=== PATIENT | male | born 1945 | race Hispanic/Latino ===

== ENCOUNTER → 2018-02-03 | Outpatient (CLI) | payer MEDICARE ==
[~2018-02-03] MED LIST: AEC81 PO; CARV12.511 PO; FURO-152 PO; SAXA1TBM2 PO; SIMV40TA59 PO; SPIR25TA6 PO
== END | disposition home or self-care (01) ==
LOC: SHCH 07:47
PROVIDERS: ATTEND Internal Medicine Cardiovascular Disease
DX: I35.0 Nonrheumatic aortic (valve) stenosis (principal); Z95.1 Presence of aortocoronary bypass graft
CPT/HCPCS: 93306

== ENCOUNTER → 2018-10-09 | Outpatient (CLI) | payer MEDICARE | END | disposition home or self-care (01) | LOC: RAH 12:08 | PROVIDERS: ATTEND Internal Medicine | DX: M19.011 Primary osteoarthritis, right shoulder (principal) | CPT/HCPCS: 73030 ==

== ENCOUNTER → 2018-12-25 | Outpatient (CLI) | payer MEDICARE | END | disposition home or self-care (01) | LOC: SHCH 09:18 | PROVIDERS: ATTEND Internal Medicine Cardiovascular Disease | DX: I11.0 Hypertensive heart disease with heart failure (principal); I50.21 Acute systolic (congestive) heart failure; I08.0 Rheumatic disorders of both mitral and aortic valves; J90 Pleural effusion, not elsewhere classified | CPT/HCPCS: 93306 ==

== ENCOUNTER → 2019-06-05 | Outpatient (CLI) | payer MEDICARE | END | disposition home or self-care (01) | LOC: RAH 08:30 | PROVIDERS: ATTEND Internal Medicine | DX: I51.7 Cardiomegaly (principal); I50.9 Heart failure, unspecified; I70.0 Atherosclerosis of aorta; J98.11 Atelectasis; Z95.0 Presence of cardiac pacemaker | CPT/HCPCS: 71046 ==

== ENCOUNTER 2023-12-31 09:43 | Inpatient (IN) | payer MEDICARE ==
[~2023-12-31] VITALS: Ht 170.2 cm; Wt 73.3 kg
[2023-12-31] VITALS (22 sets, daily range): BP systolic 95–126; BP diastolic 50–98; PULSE 81–105; RESP 14–25; TEMP 98.2; O2SAT 98
[2023-12-31 10:07] LABS: BASOPHILS # (AUTO) 0.05 K/uL (0.00-0.20); BASOPHILS % (AUTO) 0.3 % (0.0-5.0); EOSINOPHILS # (AUTO) 0.08 K/uL (0.00-0.70); EOSINOPHILS % (AUTO) 0.6 % (0.0-8.0); HEMATOCRIT 21.5 % (42-54); IMMATURE GRANULOCYTE ABSOLUTE 0.24 K/uL (0-1); LYMPHOCYTES % (AUTO) 14.1 % (21.0-51.0); MEAN CORPUSCULAR HEMOGLOBIN 31.6 pg (27.0-33.0); MEAN CORPUSCULAR VOLUME 95.6 fL (79-99); MONOCYTES # (AUTO) 0.6 K/uL (0.1-1.0); MONOCYTES % (AUTO) 4.2 % (3.0-13.0); NEUTROPHILS # (AUTO) 11.3 K/uL (1.8-7.7); NEUTROPHILS % (AUTO) 79.1 % (40.0-77.0); PLATELET COUNT (AUTO) 170 K/uL (130-400); RED BLOOD CELL COUNT(AUTO) 2.25 MIL/uL (4.50-6.20); RED CELL DISTRIBUTION WIDTH 12.9 % (11.0-15.5); WHITE BLOOD COUNT (AUTO) 14.3 K/uL (4.8-10.8)
[2023-12-31 10:27] LABS: ALBUMIN 2.5 g/dL (3.5-5.0); BILIRUBIN,DIRECT 0.1 mg/dL (0.0-0.3); BILIRUBIN,TOTAL 0.2 mg/dL (0.2-1.0); CREATININE 1.8 mg/dL (0.5-1.3); MAGNESIUM 2.5 mg/dL (1.80-2.40)
[2023-12-31 10:39] LABS: B-TYPE NATRIURETIC PEPTIDE 248 pg/mL (0-100)
[2023-12-31] MEDS: 0.9%NACL 1000ML 2,178 ML IV ONE (11:53)
[2023-12-31 12:40] LABS: APPEARANCE,URINE CLEAR (CLEAR); BILIRUBIN,URINE NEGATIVE (NEGATIVE); COLOR,URINE COLORLESS (YELLOW); GLUCOSE, URINE (UA) >=1000 mg/dL (NEGATIVE); KETONES,URINE NEGATIVE (NEGATIVE); LEUKOCYTE ESTERASE ,URINE NEGATIVE Leu/uL (NEGATIVE); NITRATE,URINE NEGATIVE (NEGATIVE); OCCULT BLOOD,URINE NEGATIVE (NEGATIVE); PROTEIN,URINE NEGATIVE (NEGATIVE); UROBILINOGEN,URINE 0.2 mg/dL (0.2-1.0)
[2023-12-31 12:41] LABS: ADD UA MICROSCOPIC YES
[2023-12-31 12:57] LABS: MUCUS,URINE RARE LPF (None Seen); WBC,URINE 0-1 /HPF (0-1)
[2023-12-31] MEDS: cefTRIAXone 1G VIAL IVPB ONE (14:09)
[2023-12-31] MEDS ORDERED: ONDANSETRON 4MG INJ IVP PRN (14:30)
[2023-12-31] MEDS: cefTRIAXone 1G VIAL IVPB SCH (14:30)
[2023-12-31] MEDS ORDERED: COMPOUND IV REFRIGERATED 1 EACH IVSOLN MISC PRN (14:30)
[2023-12-31] MEDS ORDERED: M V I IV ONE (15:00)
[2023-12-31] MEDS ORDERED: [UNRECOGNIZED DRUG - OTHER] IV ONE (15:00)
[2023-12-31] MEDS ORDERED: FOLIC ACID IV ONE (15:00)
[2023-12-31] MEDS ORDERED: THIAMINE HCL IV ONE (15:00)
[2023-12-31] MEDS: AZITHROMYCIN 500MG+NS 250ML 250 ML IVPB SCH (15:53)
[2023-12-31 15:58] LABS: SARS-CoV-2, RNA, NAAT NEGATIVE SARS CoV-2 (NEGATIVE)
[2023-12-31 16:05] LABS: INFLUENZA TYPE A Negative For Type A (NEGATIVE); INFLUENZA TYPE B Negative For Type B (NEGATIVE)
[2023-12-31] MEDS: NOREPINEPHRIN 4MG/NS 250ML 250 ML IV SCH (16:25)
[2023-12-31] MEDS: PANTOPRAZOLE 40MG INJ 80 MG in 0.9%NACL 100ML 100 ML IVP SCH (16:27)
[2023-12-31 21:16] LABS: HEMATOCRIT 17.4 % (42-54)
[2023-12-31] MEDS: BUDESONIDE 0.5 MG/2 ML INH IH SCH (23:42)
[2023-12-31] MEDS: ALBUTEROL 0.083% 2.5 MG/3 ML INH IH SCH (23:42)
[2023-12-31] MEDS: IpraTROPium 0.5 MG/2.5 ML INH IH SCH (23:42)
[2024-01-01] VITALS (100 sets, daily range): BP systolic 79–145; BP diastolic 36–81; PULSE 73–112; RESP 6–25; TEMP 98–99; O2SAT 95–98
[2024-01-01] MEDS: acetaMINOPHEN 325 MG TAB PO PRN (04:16)
[2024-01-01 04:37] LABS: BASOPHILS # (AUTO) 0.08 K/uL (0.00-0.20); BASOPHILS % (AUTO) 0.5 % (0.0-5.0); EOSINOPHILS # (AUTO) 0.16 K/uL (0.00-0.70); EOSINOPHILS % (AUTO) 0.9 % (0.0-8.0); HEMATOCRIT 22.1 % (42-54); IMMATURE GRANULOCYTE ABSOLUTE 0.61 K/uL (0-1); LYMPHOCYTES # (AUTO) 3.9 K/uL (1.0-4.8); MEAN CORPUSCULAR HEMOGLOBIN 29.3 pg (27.0-33.0); MEAN CORPUSCULAR VOLUME 88.8 fL (79-99); MONOCYTES # (AUTO) 1.5 K/uL (0.1-1.0); MONOCYTES % (AUTO) 8.5 % (3.0-13.0); NEUTROPHILS # (AUTO) 11.4 K/uL (1.8-7.7); NEUTROPHILS % (AUTO) 64.6 % (40.0-77.0); NUCLEATED RED BLOOD CELLS 0.4 % (0.0-0.19); PLATELET COUNT (AUTO) 166 K/uL (130-400); RED BLOOD CELL COUNT(AUTO) 2.49 MIL/uL (4.50-6.20); RED CELL DISTRIBUTION WIDTH 16.1 % (11.0-15.5); WHITE BLOOD COUNT (AUTO) 17.6 K/uL (4.8-10.8)
[2024-01-01 04:54] LABS: ALBUMIN 2.4 g/dL (3.5-5.0); BILIRUBIN,TOTAL 0.5 mg/dL (0.2-1.0); CREATININE 1.4 mg/dL (0.5-1.3); MAGNESIUM 2.1 mg/dL (1.80-2.40); POTASSIUM 4.7 mmol/L (3.5-5.1)
[2024-01-01] MEDS: 0.9%NACL 1000ML 1,000 ML IV SCH (09:24)
[2024-01-01] MEDS ORDERED: DEXTROSE 50%-WATER 50 ML DISP.SYRIN IV PRN (11:00)
[2024-01-01] MEDS ORDERED: GLUCAGON 1MG KIT 1 MG ML IM PRN (11:00)
[2024-01-01] MEDS: INSULIN humuLIN R 100 UNIT/ML 3ML SQ SCH (11:48)
[2024-01-01 11:49] LABS: HEMATOCRIT 19.7 % (42-54)
[2024-01-01] MEDS ORDERED: hydroMORPHone 0.5 MG SYG (0.5MG/0.5ML) IVP PRN (13:00)
[2024-01-01 13:52] LABS: ABG BASE EXCESS -5.9 mmol/L (-2.0-3.0); ABG HCO3 17.3 mmol/L (21.0-28.0); ABG OXYGEN SATURATION 96.3 % (94.0-98.0); ABG PCO2 29 mmHg (35-48); ABG PH 7.401 (7.350-7.450); DEVICE COMMENT RR; PO2, ARTERIAL BG 82.6 mmHg (83.0-108.0); VENT MODE, BG RA KARLA RN (ROOM AIR)
[2024-01-01] MEDS ORDERED: CEFTRIAXONE 2GM VIAL IVPB SCH (14:30)
[2024-01-01] MEDS: furoSEMIDE 40MG VIAL IV SCH (16:34)
[2024-01-01] MEDS: ZOSYN 3.375GM +NS 50ML IV SCH (16:34)
[2024-01-01 20:34] LABS: HEMATOCRIT 28.7 % (42-54)
[2024-01-01] MEDS: furoSEMIDE 40MG VIAL IV PRN (22:41)
[2024-01-02] VITALS (125 sets, daily range): BP systolic 68–136; BP diastolic 35–93; PULSE 69–90; RESP 6–34; TEMP 97.9–98.7; O2SAT 92–97
[2024-01-02 01:43] LABS: CREATININE,URINE RANDOM 2.98 mg/dL (30-135)
[2024-01-02 02:22] LABS: BASOPHILS # (AUTO) 0.15 K/uL (0.00-0.20); BASOPHILS % (AUTO) 0.6 % (0.0-5.0); EOSINOPHILS # (AUTO) 0.38 K/uL (0.00-0.70); EOSINOPHILS % (AUTO) 1.6 % (0.0-8.0); HEMATOCRIT 29.9 % (42-54); IMMATURE GRANULOCYTE ABSOLUTE 0.88 K/uL (0-1); LYMPHOCYTES # (AUTO) 4.8 K/uL (1.0-4.8); LYMPHOCYTES % (AUTO) 19.6 % (21.0-51.0); MEAN CORPUSCULAR HEMOGLOBIN 29.4 pg (27.0-33.0); MEAN CORPUSCULAR HGB CONC 34.4 g/dL (32.0-36.0); MEAN CORPUSCULAR VOLUME 85.4 fL (79-99); MONOCYTES # (AUTO) 1.9 K/uL (0.1-1.0); MONOCYTES % (AUTO) 7.8 % (3.0-13.0); NEUTROPHILS # (AUTO) 16.4 K/uL (1.8-7.7); NEUTROPHILS % (AUTO) 66.8 % (40.0-77.0); NUCLEATED RED BLOOD CELLS 1.6 % (0.0-0.19); PLATELET COUNT (AUTO) 164 K/uL (130-400); RED CELL DISTRIBUTION WIDTH 15.9 % (11.0-15.5); WHITE BLOOD COUNT (AUTO) 24.5 K/uL (4.8-10.8)
[2024-01-02 02:47] LABS: HEMOGLOBIN A1C 5.8 % (4.0-6.0)
[2024-01-02 03:01] LABS: % IRON SATURATION 49.3 % (30-44)
[2024-01-02 03:24] LABS: CREATININE 1.4 mg/dL (0.5-1.3); PHOSPHORUS 2.7 mg/dL (2.5-4.9); POTASSIUM 4.1 mmol/L (3.5-5.1)
[2024-01-02] MEDS: BACITRACIN 1 EACH PACKET TP ONE (09:16)
[2024-01-02] MEDS ORDERED: proPOFol 10 MG/ML 20ML VIAL IV ONE (12:35)
[2024-01-02] MEDS ORDERED: MONT-39 PO (12:42)
[2024-01-02] MEDS ORDERED: ASPI-1197 PO (12:42)
[2024-01-02] MEDS ORDERED: ZINC50TA64 PO (12:42)
[2024-01-02] MEDS ORDERED: SPIR25TA6 PO (12:42)
[2024-01-02] MEDS ORDERED: CARV3.1262 PO (12:42)
[2024-01-02] MEDS ORDERED: METF-444 PO (12:42)
[2024-01-02] MEDS ORDERED: DAPA10TA PO (12:42)
[2024-01-02] MEDS ORDERED: LORA10TA7 PO (12:42)
[2024-01-02] MEDS ORDERED: SACU1TAB PO (12:42)
[2024-01-02] MEDS ORDERED: SIMV-46 PO (12:42)
[2024-01-02] MEDS ORDERED: APIX5TAB PO (12:42)
[2024-01-02] MEDS ORDERED: FURO40TA7 PO (12:42)
[2024-01-02] MEDS: miDODRine HCL 5 MG TABLET PO SCH (13:59)
[2024-01-02] MEDS: LINEZOLID 600 MG/ISO-OSM 300 ML IV SCH (13:59)
[2024-01-02] MEDS: PANTOPRAZOLE 40 MG TAB DR PO SCH (21:00)
[2024-01-03] VITALS (47 sets, daily range): BP systolic 88–149; BP diastolic 46–111; PULSE 74–84; RESP 5–35; TEMP 97.5–98.2; O2SAT 97–100
[2024-01-03 04:18] LABS: HEMATOCRIT 27.3 % (42-54); MEAN CORPUSCULAR HEMOGLOBIN 30.3 pg (27.0-33.0); MEAN CORPUSCULAR HGB CONC 34.4 g/dL (32.0-36.0); MEAN CORPUSCULAR VOLUME 88.1 fL (79-99); NUCLEATED RED BLOOD CELLS 0.2 % (0.0-0.19); RED BLOOD CELL COUNT(AUTO) 3.1 MIL/uL (4.50-6.20); RED CELL DISTRIBUTION WIDTH 16.6 % (11.0-15.5); WHITE BLOOD COUNT (AUTO) 20.3 K/uL (4.8-10.8)
[2024-01-03 04:32] LABS: ALBUMIN 2.6 g/dL (3.5-5.0); BILIRUBIN,TOTAL 0.9 mg/dL (0.2-1.0); CREATININE 1.2 mg/dL (0.5-1.3); MAGNESIUM 1.8 mg/dL (1.80-2.40); POTASSIUM 4.1 mmol/L (3.5-5.1); TOTAL PROTEIN, SERUM 5.5 g/dL (6.0-8.3)
[2024-01-03 10:18] LABS: INR 1.03 (0.85-1.15); PROTHROMBIN TIME 11.1 SEC (9.6-11.6)
[2024-01-03] MEDS: PEG 3350/NA SULF,BICARB,CL/KCL 4000 ML SOLN PO ONE (19:55)
[2024-01-03] MEDS: furoSEMIDE 40MG VIAL IV SCH (21:00)
[2024-01-03] MEDS ORDERED: NON-FORMULARY MEDICATION 1 EACH (Simvastatin 40 MG) PO SCH (21:00)
[2024-01-03] MEDS: simVASTatin 20 MG TABLET PO SCH (21:33)
[2024-01-03] MEDS: monteLUKAST sodIUM 10 MG TAB PO SCH (21:34)
[2024-01-04] VITALS (26 sets, daily range): BP systolic 95–149; BP diastolic 58–96; PULSE 73–84; RESP 15–20; TEMP 97.3–98.3; O2SAT 97–99
[2024-01-04 05:17] LABS: BASOPHILS # (AUTO) 0.06 K/uL (0.00-0.20); BASOPHILS % (AUTO) 0.4 % (0.0-5.0); EOSINOPHILS # (AUTO) 0.53 K/uL (0.00-0.70); EOSINOPHILS % (AUTO) 3.2 % (0.0-8.0); HEMATOCRIT 26.4 % (42-54); IMMATURE GRANULOCYTE ABSOLUTE 0.14 K/uL (0-1); LYMPHOCYTES % (AUTO) 18.2 % (21.0-51.0); MEAN CORPUSCULAR HEMOGLOBIN 30.7 pg (27.0-33.0); MEAN CORPUSCULAR HGB CONC 34.5 g/dL (32.0-36.0); MEAN CORPUSCULAR VOLUME 89.2 fL (79-99); MONOCYTES # (AUTO) 1.1 K/uL (0.1-1.0); MONOCYTES % (AUTO) 6.7 % (3.0-13.0); NEUTROPHILS # (AUTO) 11.6 K/uL (1.8-7.7); NEUTROPHILS % (AUTO) 70.6 % (40.0-77.0); PLATELET COUNT (AUTO) 140 K/uL (130-400); RED BLOOD CELL COUNT(AUTO) 2.96 MIL/uL (4.50-6.20); RED CELL DISTRIBUTION WIDTH 17.2 % (11.0-15.5); WHITE BLOOD COUNT (AUTO) 16.4 K/uL (4.8-10.8)
[2024-01-04 05:37] LABS: ALBUMIN 2.5 g/dL (3.5-5.0); BILIRUBIN,TOTAL 0.7 mg/dL (0.2-1.0); POTASSIUM 3.8 mmol/L (3.5-5.1); TOTAL PROTEIN, SERUM 5.3 g/dL (6.0-8.3)
[2024-01-04] MEDS ORDERED: proPOFol 10 MG/ML 20ML VIAL IV ONE (08:13)
[2024-01-04] MEDS ORDERED: LIDOCAINE PF 100MG/5ML (2%) SYRINGE 5ML ONE (08:13)
[2024-01-04] MEDS: ASPIRIN 81MG CHEW TAB PO SCH (09:00)
[2024-01-04] MEDS ORDERED: SPIRONOLACTONE 25 MG TAB PO SCH (09:00)
[2024-01-04] MEDS: Dapagliflozin Propanediol (Farxiga) 10 MG PO SCH (09:00)
[2024-01-04] MEDS: PHARMACY COMMUNICATION MISC SCH (13:30)
[2024-01-04] MEDS: furoSEMIDE 40MG VIAL IV SCH (17:47)
[2024-01-04 20:19] LABS: HEMATOCRIT 27.1 % (42-54)
[2024-01-05] VITALS (7 sets, daily range): BP systolic 99–128; BP diastolic 52–74; PULSE 68–79; RESP 16–20; TEMP 97.7–98.5; O2SAT 98
[2024-01-05 05:53] LABS: HEMATOCRIT 26.1 % (42-54); MEAN CORPUSCULAR HEMOGLOBIN 30.1 pg (27.0-33.0); MEAN CORPUSCULAR HGB CONC 33.3 g/dL (32.0-36.0); MEAN CORPUSCULAR VOLUME 90.3 fL (79-99); RED BLOOD CELL COUNT(AUTO) 2.89 MIL/uL (4.50-6.20); RED CELL DISTRIBUTION WIDTH 17.3 % (11.0-15.5); WHITE BLOOD COUNT (AUTO) 12.2 K/uL (4.8-10.8)
[2024-01-05 06:01] LABS: CREATININE 1.1 mg/dL (0.5-1.3); MAGNESIUM 1.6 mg/dL (1.80-2.40); PHOSPHORUS 3.4 mg/dL (2.5-4.9); POTASSIUM 3.7 mmol/L (3.5-5.1)
[2024-01-05] MEDS: APIXaban 5 MG TABLET PO SCH (16:30)
[2024-01-05] MEDS ORDERED: carVEDIlol 3.125 MG TABLET PO SCH (21:00)
[2024-01-06] MEDS ORDERED: furoSEMIDE 40 MG TABLET PO SCH (09:00)
== END 2024-01-05 18:00 | disposition home or self-care (01) | DRG 871 ==
LOC: EDH 09:43 → EDHIP 14:11 → 2CH 19:18 → 3CH 01-03 18:35
PROVIDERS: ADMIT Hospitalist; ATTEND Hospitalist
PROC: 30233N1 Transfusion of Nonautologous Red Blood Cells into Peripheral Vein, Percutaneous Approach (ICD-10-PCS; 2023-12-31)
PROC: 0DB68ZX Excision of Stomach, Via Natural or Artificial Opening Endoscopic, Diagnostic (ICD-10-PCS; principal; 2024-01-02)
PROC: 05HY33Z Insertion of Infusion Device into Upper Vein, Percutaneous Approach (ICD-10-PCS; 2024-01-03)
PROC: 0DJD8ZZ Inspection of Lower Intestinal Tract, Via Natural or Artificial Opening Endoscopic (ICD-10-PCS; 2024-01-04)
DX: A41.9 Sepsis, unspecified organism (principal); E43 Unspecified severe protein-calorie malnutrition; J18.9 Pneumonia, unspecified organism; R65.21 Severe sepsis with septic shock; I50.43 Acute on chronic combined systolic (congestive) and diastolic (congestive) heart failure; J96.01 Acute respiratory failure with hypoxia; K57.31 Diverticulosis of large intestine without perforation or abscess with bleeding; R57.1 Hypovolemic shock; R57.8 Other shock; D68.59 Other primary thrombophilia; I13.0 Hypertensive heart and chronic kidney disease with heart failure and stage 1 through stage 4 chronic kidney disease, or unspecified chronic kidney disease; E87.20 Acidosis, unspecified; N17.9 Acute kidney failure, unspecified; N39.0 Urinary tract infection, site not specified; E11.65 Type 2 diabetes mellitus with hyperglycemia; E66.9 Obesity, unspecified; E86.1 Hypovolemia; I25.5 Ischemic cardiomyopathy; I48.0 Paroxysmal atrial fibrillation; K25.9 Gastric ulcer, unspecified as acute or chronic, without hemorrhage or perforation; M47.812 Spondylosis without myelopathy or radiculopathy, cervical region; N18.30 Chronic kidney disease, stage 3 unspecified; T45.515A Adverse effect of anticoagulants, initial encounter; E11.22 Type 2 diabetes mellitus with diabetic chronic kidney disease; E11.649 Type 2 diabetes mellitus with hypoglycemia without coma; D64.9 Anemia, unspecified; E78.00 Pure hypercholesterolemia, unspecified; K31.89 Other diseases of stomach and duodenum; K64.8 Other hemorrhoids; I25.10 Atherosclerotic heart disease of native coronary artery without angina pectoris; Z95.1 Presence of aortocoronary bypass graft; Z95.2 Presence of prosthetic heart valve; Z95.810 Presence of automatic (implantable) cardiac defibrillator; Z63.4 Disappearance and death of family member; Z79.01 Long term (current) use of anticoagulants; Z79.84 Long term (current) use of oral hypoglycemic drugs; Z79.899 Other long term (current) drug therapy; Z80.0 Family history of malignant neoplasm of digestive organs; Z83.3 Family history of diabetes mellitus; Z85.038 Personal history of other malignant neoplasm of large intestine; Z87.11 Personal history of peptic ulcer disease; Z95.3 Presence of xenogenic heart valve; Z68.25 Body mass index [BMI] 25.0-25.9, adult; Y92.89 Other specified places as the place of occurrence of the external cause
CPT/HCPCS: 36415; 36430; 36556; 36600; 43239; 45378; 70450; 71045; 72125; 73562; 78278; 80048; 80053; 80076; 81001; 82010; 82270; 82570; 82803; 82948; 83036; 83540; 83550; 83605; 83690; 83735; 83880; 84100; 84145; 84300; 84484; 85014; 85018; 85025; 85027; 85384; 85610; 86850; 86900; 86901; 86923; 87635; 87804; 88312; 92610; 93005; 93306; 94640; 94664; 96365; 96375; A4606; A9512; C1894; G0378; J0456; J0696; J1815; J1940; J2001; J2020; J2470; J2543; J2704; J3411; J3490; J7030; P9016; A4215; A4222; A4223; A4620; C1750

== ENCOUNTER 2024-05-20 05:39 | Day surgery (SDC) | payer MEDICARE ==
[2024-05-20] VITALS (10 sets, daily range): BP systolic 91–115; BP diastolic 59–84; PULSE 74–78; RESP 14–18; TEMP 98–98.4
[~2024-05-20] VITALS: Ht 170.2 cm; Wt 73.0 kg
[~2024-05-20 05:39] MED LIST changes: -AEC81 PO; +ASPI-1197 PO; -CARV12.511 PO; +CARV3.1262 PO; +DAPA10TA PO; -FURO-152 PO; +FURO40TA7 PO; +LORA10TA7 PO; +METF-444 PO; +MONT-39 PO; -SAXA1TBM2 PO; +SIMV-46 PO; -SIMV40TA59 PO; -SPIR25TA6 PO; +ZINC50TA64 PO
[2024-05-20] MEDS ORDERED: APIX2.5T PO (06:22)
[2024-05-20] MEDS ORDERED: PANT40TA55 PO (06:22)
[2024-05-20] MEDS ORDERED: MAGN400C PO (06:22)
[2024-05-20] MEDS ORDERED: ASCO100031 PO (06:25)
[2024-05-20] MEDS ORDERED: CHOL500051 PO (06:25)
[2024-05-20] MEDS ORDERED: MULT-1285 PO (06:27)
[2024-05-20] MEDS: 0.9%NACL 1000ML 1,000 ML IV ONE (06:41)
[2024-05-20] MEDS ORDERED: LIDOCAINE HCL 1% 20 ML VIAL ONE (07:20)
[2024-05-20] MEDS ORDERED: proPOFol 10 MG/ML 20ML VIAL IV ONE (07:20)
--- NOTE | 2024-05-20 08:41 | NUR ---
FULL AND COMPLETE DISCHARGE INSTRUCTIONS GIVEN BOTH VERBALLY AND IN WRITING TO PATIENT AND FAMILY. ALL QUESTIONS ANSWERED. PIV REMOVED WITH CATHETER TIP INTACT. DENIES CURRENT PAIN OR NAUSEA. VOICED UNDERSTANDING TO GI INSTRUCTIONS AND FOLLOW UP. W/C TO POV WITH FAMILY TO HOME
== END 2024-05-20 08:35 | disposition home or self-care (01) ==
LOC: DAH 05:39 → ENDO 05:39
PROVIDERS: ATTEND Internal Medicine Gastroenterology
DX: K25.3 Acute gastric ulcer without hemorrhage or perforation (principal); K31.A19 Gastric intestinal metaplasia without dysplasia, unspecified site; K29.50 Unspecified chronic gastritis without bleeding; K44.9 Diaphragmatic hernia without obstruction or gangrene; E11.9 Type 2 diabetes mellitus without complications; M19.90 Unspecified osteoarthritis, unspecified site; K57.90 Diverticulosis of intestine, part unspecified, without perforation or abscess without bleeding; K64.8 Other hemorrhoids; Z80.0 Family history of malignant neoplasm of digestive organs; I48.20 Chronic atrial fibrillation, unspecified; I10 Essential (primary) hypertension; Z95.0 Presence of cardiac pacemaker; Z98.42 Cataract extraction status, left eye; Z98.41 Cataract extraction status, right eye; Z95.1 Presence of aortocoronary bypass graft; Z79.82 Long term (current) use of aspirin; Z79.84 Long term (current) use of oral hypoglycemic drugs; Z79.899 Other long term (current) drug therapy
CPT/HCPCS: 43239; 82948 ×2; J7030 ×2; J2704; A4215; A4223; A4222; A4221; A4663; A4606; J3490

== ENCOUNTER 2025-03-16 07:11 | Day surgery (SDC) | payer MEDICARE ==
[2025-03-12 08:05] LABS: IMMATURE GRANULOCYTE ABSOLUTE 0.04 K/uL (0-1); NUCLEATED RED BLOOD CELLS 0.0 % (0.0-0.19); PLATELET COUNT (AUTO) 223 K/uL (130-400); RED BLOOD CELL COUNT(AUTO) 4.66 MIL/uL (4.50-6.20); RED CELL DISTRIBUTION WIDTH 13.5 % (11.0-15.5); WHITE BLOOD COUNT (AUTO) 10.5 K/uL (4.8-10.8)
[2025-03-12 08:11] LABS: CREATININE 1.2 mg/dL (0.5-1.3); GLOMERULAR FILTR. RATE CALC 60.0 mL/min (>90); GLUCOSE,RANDOM 106.0 mg/dL (70-105); SODIUM SERUM 142.0 mmol/L (136-145); UREA NITROGEN, BLOOD 19.0 mg/dL (7-18)
[2025-03-12 08:15] LABS: INR 1.12 (0.85-1.15)
[2025-03-12 08:30] VITALS: BP 94/65; PULSE 70; RESP 14; TEMP 97.2
--- NOTE | 2025-03-12 15:23 | EKG ---
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
[2025-03-16] VITALS (7 sets, daily range): BP systolic 95–116; BP diastolic 56–83; PULSE 71–84; RESP 13–16; TEMP 97.2–97.9
[~2025-03-16] VITALS: Ht 170.2 cm; Wt 66.7 kg
[~2025-03-16 07:11] MED LIST changes: +APIX5TAB PO; -ASPI-1197 PO; -CARV3.1262 PO; +FURO20TA4 PO; -FURO40TA7 PO; +LACT-441 PO; +LISI2.5T13 PO; -METF-444 PO; +METO-408 PO; +PANT40TA55 PO; +PROP15DR OU; +ROSU10TA98 PO; -SIMV-46 PO; +TIRZ2.5P SQ; -ZINC50TA64 PO
[2025-03-16] MEDS: 0.9%NACL 1000ML 1,000 ML IV SCH (08:18)
[2025-03-16] MEDS ORDERED: LIDOCAINE HCL 1% MDV 50ML VIAL ONE (12:46)
[2025-03-16] MEDS ORDERED: SODIUM BICARB 50MEQ 50ML VIAL 50 ML ONE (12:46)
[2025-03-16] MEDS ORDERED: MIDAZOLAM HCL 1 MG/ML 2ML VIAL ONE ×2 (13:06→13:28)
[2025-03-16] MEDS ORDERED: BACITRACIN 1 EACH PACKET TP ONE (14:37)
[2025-03-16] MEDS ORDERED: TRAM50TA4 PO (15:00)
--- NOTE | 2025-03-16 15:15 | NUR ---
RECEIVED PATIENT FROM NETWORK INTERN AT THIS TIME. PATIENT WITH PRESSURE DRESSING TO LEFT UPPER CHEST, ARM SLING IN PLACE. PATIENT DENIES ANY PAIN AT THIS TIME. SURROUNDING AREA IS SOFT, NON-TENDER. NO BLEEDING/DRAINAGE NOTED.
--- NOTE | 2025-03-16 17:00 | NUR ---
PRESSURE DRESSING TO LEFT UPPER CHEST REMOVED AT THIS TIME, PATIENT TOLERATED WELL. NO BLEEDING/DRAINAGE NOTED. AREA IS SOFT, NON-TENDER, NO HEMATOMA NOTED. PATIENT AND DAUGHTER AT BEDSIDE GIVEN DISCHARGE INSTRUCTIONS AND INSTRUCTIONS FOR DAILY DRESSING CHANGES. BOTH VERBALIZED UNDERSTANDING. NO QUESTIONS/CONCERNS AT THIS TIME.
--- NOTE | 2025-03-17 05:48 | HMCIMG ---
EXAM: CR Chest, 1 view. CLINICAL HISTORY: Cough. COMPARISON: None provided. FINDINGS: Bilateral perihilar congestion is noted. Bilateral pleural thickening is noted. Cardiomegaly is noted. A radio-opaque pacemaker is noted. Radio-opaque sternal sutures are seen. No acute osseous abnormality. IMPRESSION: Bilateral perihilar congestion is noted. Bilateral pleural thickening is noted. Cardiomegaly is noted. A radio-opaque pacemaker is noted. Radio-opaque sternal sutures are seen. /Ardara
== END 2025-03-16 17:40 | disposition home or self-care (01) ==
LOC: DAH 07:11
PROVIDERS: ATTEND Internal Medicine Cardiovascular Disease
DX: T82.198A Other mechanical complication of other cardiac electronic device, initial encounter (principal); Z45.02 Encounter for adjustment and management of automatic implantable cardiac defibrillator; I11.0 Hypertensive heart disease with heart failure; I50.22 Chronic systolic (congestive) heart failure; I48.19 Other persistent atrial fibrillation; I42.8 Other cardiomyopathies; E78.5 Hyperlipidemia, unspecified; E11.9 Type 2 diabetes mellitus without complications; I25.10 Atherosclerotic heart disease of native coronary artery without angina pectoris; Z98.42 Cataract extraction status, left eye; Z98.41 Cataract extraction status, right eye; Z98.890 Other specified postprocedural states; Z79.01 Long term (current) use of anticoagulants; Z79.899 Other long term (current) drug therapy; Y82.8 Other medical devices associated with adverse incidents; Y71.2 Prosthetic and other implants, materials and accessory cardiovascular devices associated with adverse incidents
CPT/HCPCS: 80048; 85025; 85610; 85730; 36415; 93005; 33249; 33241; 82948 ×2; 71045; 99156; 99157 ×6; C1769; C1777; C1882; J3010; J0690; J7030; J0665; J3490 ×2; J2250 ×2; A4215; A4222; A4221; A4663; A4216; A4606; A4223 ×3; 33216; 33263; 33264